=== PATIENT | female | born 1970 | race Two or more races ===

== ENCOUNTER 2024-03-16 15:23 | Emergency (ER) | payer BC ==
[~2024-03-16] VITALS: Ht 160 cm; Wt 72.6 kg
[2024-03-16] MEDS ORDERED: HYDROCODONE/APAP 5-325MG TABLET ONE (15:47)
[2024-03-16] MEDS: HYDROCODONE/APAP 5-325MG TABLET PO ONE (15:51)
[2024-03-16] MEDS ORDERED: HYDR-4209 PO (17:30)
[2024-03-16 18:27] VITALS: BP 142/71; TEMP 98.1; O2SAT 98
== END 2024-03-16 18:28 | disposition home or self-care (01) ==
LOC: ER 15:24
DX: S80.02XA Contusion of left knee, initial encounter (principal); V89.2XXA Person injured in unspecified motor-vehicle accident, traffic, initial encounter; Y93.89 Activity, other specified; Y92.89 Other specified places as the place of occurrence of the external cause; Y99.8 Other external cause status
CPT/HCPCS: 71045; 73560; A4606; A4663